=== PATIENT | female | born 1965 | race Caucasian/White ===

== ENCOUNTER → 2020-11-06 | Day surgery (SDC) | payer BC, OTHER ==
[~2020-11-06] VITALS: Ht 162.6 cm; Wt 88.5 kg
[~2020-11-06] MED LIST: AZELASTINE137 MCG/0. NASAL; NOLVADEX20 MG PO
--- NOTE | ~2020-11-06 | O ---
[address] [address] OPERATIVE REPORT Name: ALEX VZICAINO Room #: REG [facility].#: [id number] Admission: 11/06/20 Attend Phys: Luis Alberto Bazan MD Discharge: Date of : 61 Report #: [id number] THIS REPORT FOR: cc: Kong Joseph MD, John H. MD McCabe,Luis Alberto Carballo MD ~ DOC #: [id number] Luis Alberto Bazan MD DATE OF SERVICE: 11/06/2020 SERVICE: Orthopedics. FACILITY: [facility]. SURGEON: Luis Alberot Bazan MD COLLABORATING SUPERVISING PHYSICIAN: Cathy King NP INDICATION FOR COLLABORATING SUPERVISING PHYSICIAN: Extremity positioning, suture management, arthroscope management, assistance with repair. PREOPERATIVE DIAGNOSES: 1. Right hip pain. 2. Right hip labral tear. 3. Right hip impingement. 4. Right hip chondromalacia. POSTOPERATIVE DIAGNOSES: 1. Right hip pain. 2. Right hip detached anterior labral tear. 3. Right hip impingement. 4. Right hip chondromalacia. PROCEDURE PERFORMED: 1. Right hip arthroscopic labral repair. 2. Right hip arthroscopic Cam osteochondroplasty. 3. Right hip arthroscopic acetabular chondroplasty. COMPLICATIONS: None. DRAINS: None. SPECIMENS: None. ESTIMATED BLOOD LOSS: [address] [address] OPERATIVE REPORT Name: ALEX VIZCAINO Room #: REG [facility]#: [id number] Admission: 11/06/20 Attend Phys: Luis Alberto Bazan MD Discharge: Date of : 61 Report #: [id number] ANESTHESIA: General with regional. FINDINGS: 1. Fully detached anterior labral tear. 2. Complex labral repair, total of six Seney CinchLock suture anchors to address this hypertrophic detached labral tear with a contiguous detached anterior articular cartilage segment. 3. Small Cam deformity treated with Cam osteoplasty. 4. Capsular repair with #2 Vicryl x4. INDICATIONS: The patient is a 55-year-old female who approximately 2 years ago sustained an acute injury to her right hip while snow skiing, then she was having persistent and progressive right hip mechanical symptoms that were quite painful and severely affecting her activities of daily living and they were making her apprehensive to do simple activities such as drive because getting out of the car was in particular a dangerous activity. She was concerned about falling and the frequency of these events was increasing. X-rays consistent with Cam impingement with an alpha angle approximately 55 degrees and an MRI that showed a full thickness anterior labral tear. There was some chondromalacia, but no full thickness articular cartilage lesions and Ton[place] grade is 0 on the preoperative x-rays. She had tried rest, activity modifications, physical therapy, oral medicines, intraarticular injection and modalities. All these provided insufficient relief. She has positive pain response with the intra-articular injection, but again did not have sustained pain relief. She was indicated for surgical treatment after failing conservative measures. Risks, benefits, alternatives and indications for surgery discussed with her in detail. Risks include but not limited to pain, bleeding, infection, injury to nerves or blood vessels, persistent pain despite surgical intervention, failure of any repairs, progression of preexisting chondral injury, stiffness, need for further surgery as well as complications related to anesthesia. Despite the risks, she wished to proceed. DESCRIPTION OF PROCEDURE: After right lower extremity was correctly identified in the preoperative holding area as the operative extremity, the patient underwent regional nerve block. She was then taken to the operating room where general anesthesia was induced without complication with LMA. She was padded appropriately. Prophylactic antibiotics were administered at appropriate time. C-arm was brought in to identify the extent of the Cam deformity and right hip was then prepped and draped in standard sterile fashion. Timeout procedure performed. Note that the templating intraoperatively with C-arm confirmed an alpha angle approximately 55 degrees. Traction was applied to the right lower extremity. After prepping and draping and the timeout, standard anterolateral viewing portal was established followed by anteromedial working portal under fluoroscopic and arthroscopic [address] [address] OPERATIVE REPORT Name: ALEX VIZCAINO Room #: REG [facility]..#: [id number] Admission: 11/06/20 Attend Phys: Luis Alberto Bazan MD Discharge: Date of : 61 Report #: [id number] visualization. There was synovitis present and this will be the indication for continuous passive motion machine used postoperatively as this can be used to reduce the risk of scarring and adhesions, which were reasons for reoperation in this patient population. Upon placement of the scope into the hip, we could immediately determined that there was a large full thickness detached anterior labral tear. This communicated with the joint space at the chondral labral junction medially and anteriorly; however, anterolaterally it actually propagated posteriorly towards the acetabulum and there was associated detached anterior articular cartilage segment such that the chondral labral junction more laterally was intact. This was grossly unstable and was likely the source of the mechanical symptoms she was having as this could be mobilized back and forth and easily could have folded back upon itself and become incarcerated in the joint. The capsule was reflected on the dorsal side of the labrum to allow access to the acetabular side. There was no evidence of sub-spine impingement. There was no evidence of pincer impingement either. The bur was used to gently decorticate the acetabular rim to create a fresh bleeding surface for labral refixation. The first anchor was then placed at the apex of the labral tear and this lifted the labrum and reduced it to its anatomic position. Due to the large size of the labrum and also partly to the fact that as the tear propagated laterally, the detached segment became larger due to the associated and attached articular cartilage, ultimately the first anchor only served as an initial reduction stitch and did not have the same security as the more peripheral anchor so. The second anchor was then placed more laterally and assessing this with the probe, I felt that a third anchor more medially would be appropriate, so this anchor was placed in the standard fashion, adequately securing the medial aspect of the detached labral tear. At this point, with the three anchors in, we could confirm that the first anchor was now slightly loosened due to the reduction of the labrum medially and laterally and the force distribution across the labrum, made a decision to place a fourth anchor at this point over the location of the first anchor so this anchor was drilled more proximally up the acetabular side and then the suture was passed through the loop of the first anchor as well as behind the labrum and this configuration allowed for the tensioning with the CinchLock anchor to tighten the reduction of the labrum and also further tensioning the first sutures such that these were four affective sutures at this point. A working portal was then made laterally, viewing portal anteromedially and the detached chondral labral segment was still mobile in this position, so the capsules reflected off the dorsal side of the labrum and a fifth anchor was then placed in this position as well. I did pass this through a segment of the cartilage at the junction in order to ensure that the labrum reduced anatomically and then a biter was used to debride the detached cartilage segment and create a smoother chondral labral junction. Most of the articular cartilage [facility] [address] [place] [address] OPERATIVE REPORT Name: ALEX VIZCAINO Tejinder Room #: REG [facility].#: [id number] Admission: 11/06/20 Attend Phys: Luis Alberto Bazan MD Discharge: Date of : 61 Report #: [id number] attachment was actually partial thickness, so there was a relatively smooth transition to the acetabular cartilage. Scope was then placed laterally again and I was further evaluating and then resecting the residual detached cartilage and felt that the gap between the fourth and the fifth anchors still was somewhat large and the labrum was mobile here again because of the very large size of the labrum further force distribution and load sharing was most appropriate, so I made a decision to place sixth anchor in this position utilizing a Marco CinchLock anchor as well and then the suture was placed and the labrum was repaired and secured to the rim. At this point, the labrum was probed and found to be stable and the biter and the shaver were used to complete the acetabular chondroplasty. Please note that there is partial thickness stellate type pattern of chondromalacia on the femoral head. I presume this to be secondary to the detached anterior labral tear and the mechanical symptoms associated with the chondral flap that articulated with this diseased portion of the femoral head. This did have a mechanical chondromalacia appearance to it as opposed to a diffuse biologic arthritic cartilage deterioration. Traction was let down. The hip was flexed up. Attention was turned to the peripheral compartment. The capsulotomy was then extended down the neck slightly in a T fashion to allow access to the entire peripheral compartment and the bur was used to perform a Cam osteoplasty. Due to her age and being a female in her late 50s, I was cautious to avoid excessive resection and went with a modest correction due to her mild deformity in order to avoid any further injury to the labrum and the cartilage. After the osteochondroplasty was completed, the instruments were removed. C-arm was brought in. I assessed the resection, I was happy with the appearance of the correction. The instruments were placed back into the hip. The bony debris was lavaged. The T-shaped capsulotomy was closed with a total of four #2 Vicryl sutures. Instruments were removed. Portal sites were closed. Sterile dressing was applied. The patient was awakened by anesthesia and taken to recovery room in stable condition. There were no complications and all counts were correct. Luis Alberto Bazan MD MPM/EDDIE By: 1431 1544 Luis Alberto Bazan MD /nt
[2020-11-06 12:34] VITALS: BP 105/92
--- NOTE | 2020-11-06 12:39 | EKG ---
[place] [address] [facility] [place] [address] ELECTROCARDIOGRAM REPORT Name: ALEX VIZCAINO Room #: REG [facility]#: [id number] Admission: 11/06/20 Attend Phys: Luis Alberto Bazan MD Discharge: Date of : 61 Report #: [id number] [facility] Test Date: 2020-11-06 Test Time: 12:13:05 Pat Name: ALEX VIZCAINO Department: Room: Gender: F Fur Joiner: FRANCINE : 1965 Requested By: Luis Alberto Bazan Order Number: [id number] : Damon Red Measurements Intervals [place] Rate: 68 P: 29 CA: 179 QRS: 29 QRSD: 85 T: 20 QT: 410 QTc: 437 Interpretive Statements Sinus rhythm Abnormal R-wave progression, early transition No previous ECG available for comparison Electronically Signed On 11-06-2020 12:39:17 CDT by Damon Red [email or web address] <ELECTRONICALLY SIGNED> By: Damon Red MD, [facility] 11/06/20 1239 1213 1213 Damon Red MD, FACC /EPI
[2020-11-06 15:42] VITALS: BP 105/92
== END | disposition home or self-care (01) ==
LOC: OR 08:28
PROVIDERS: ATTEND Orthopaedic Surgery Sports Medicine
DX: M25.551 Pain in right hip (principal); S73.191A Other sprain of right hip, initial encounter; M25.851 Other specified joint disorders, right hip; Z98.890 Other specified postprocedural states; Z79.899 Other long term (current) drug therapy; Z20.822 Contact with and (suspected) exposure to COVID-19; Z85.3 Personal history of malignant neoplasm of breast; Z88.8 Allergy status to other drugs, medicaments and biological substances; X58.XXXA Exposure to other specified factors, initial encounter; Y93.89 Activity, other specified; Y92.89 Other specified places as the place of occurrence of the external cause; Y99.8 Other external cause status
CPT/HCPCS: 50010; 50101; 50386; 51538; 52304; 52313; 54118; 56524; 56527; 57103; 58273; 58274; 58558; 58559; 58561; 58562; 58563; 58564; 58608; 58634; 58638; 62110; 62900; 65060; 70005